=== PATIENT | male | born 1945 | race Caucasian/White ===

== ENCOUNTER 2019-12-15 19:11 | Emergency (ER) | payer MEDICARE, SELFPAY ==
[2019-12-15 19:13] VITALS: BP 197/82; PULSE 66; RESP 19; TEMP 36.7; O2SAT 98
--- NOTE | 2019-12-15 19:20 | ED.MALEGU ---
HPI - Male Genitourinary General Chief complaint: Urogenital-Male Stated complaint: abd pain Time Seen by Provider: 12/15/19 19:17 History of Present Illness HPI Narrative: Pain at the tip of his penis and lower abdomen since earlier this evening. He is currently being treated for a UTI. This was started during a recent admission to [facility]. He says that they also placed a catheter at that time, but that was removed prior to discharge. He was seen earlier today in urology clinic and told that everything was fine . Shortly after that is when the pain started. He is incontinent of urine since a prostatectomy years ago. I discussed the case with Dr. Fulton. He says that the UA obtained this morning did not indicate UTI. He did have 250 in his bladder at that time. It was determined that he did not need a catheter at that time. Related Data Home Medications Medication Instructions Recorded Confirmed allopurinol 300 mg PO DAILY 12/15/19 12/15/19 amlodipine 5 mg PO DAILY 12/15/19 12/15/19 aspirin [Aspir-81] 81 mg PO DAILY 12/15/19 12/15/19 atorvastatin 40 mg PO DAILY 12/15/19 12/15/19 bupropion HCl 150 mg PO QAM 12/15/19 12/15/19 ciprofloxacin HCl 500 mg PO BID 12/15/19 12/15/19 furosemide 20 mg PO BID 12/15/19 12/15/19 lorazepam 0.5 mg PO HS 12/15/19 12/15/19 losartan 50 mg PO DAILY 12/15/19 12/15/19 metoprolol tartrate 100 mg PO Q12H 12/15/19 12/15/19 [id number] acid-lutein [Centrum 1 tablet PO DAILY 12/15/19 12/15/19 Silver] pantoprazole 40 mg PO BID 12/15/19 12/15/19 sennosides 8.6 mg PO BID 12/15/19 12/15/19 sertraline 50 mg PO DAILY 12/15/19 12/15/19 Allergies Allergy/AdvReac Type Severity Reaction Status Date / Time Penicillins Allergy Unknown Swelling Verified 12/15/19 20:28 Review of Systems Review of Systems: All systems reviewed & are unremarkable except as noted in HPI and below Constitutional: Constitutional: Denies fever(s) Cardiovascular: Cardiovascular: Denies chest pain Respiratory: Respiratory: Denies dyspnea Gastrointestinal: Gastrointestinal: Reports abdominal pain, Denies nausea and Denies vomiting Genitourinary: Genitourinary: Denies hematuria, Denies genital lesions, Denies dysuria, Denies penile discharge and Denies testicular pain Musculoskeletal: Musculoskeletal: Denies back pain [facility] Past Medical History Medical History (Updated 12/16/19 @ 00:54 by Mike Lopez MD) Amputation toe Diabetes Gout HTN (hypertension) Prostate cancer Surgical History Surgical History (Updated 12/16/19 @ 00:54 by Mike Lopez MD) H/O prostatectomy Family History Family History Other Family history of allergic disorder Family history of dementia Family history of kidney disease Family history of liver disease Family history of malignant neoplasm Hypertension Social History Social History Smoking status: Former smoker Alcohol intake: current Exam Const: General: no acute distress, alert and ill appearing chronically HENMT: Head: normal to inspection Resp: Effort & Inspection: normal respiratory effort Auscultation: clear to auscultation bilaterally Cardio: Rate: regular rate Rhythm: regular rhythm GI: Inspection: non-distended GI Palp: No Guarding due to palpation present (GI) and No Rebound tenderness present : General: Yes Bladder palpation abnormal distended and tender Skin: General skin exam: normal color Neuro: General: patient oriented x3 and moves all extremities Speech: normal speech Extrem: General: edema bilateral Other: multiple toes amputated Course Vital Signs Vital signs: Vital Signs Temperature 36.7 C 12/15/19 19:13 Pulse Rate 66 12/15/19 19:13 Respiratory Rate 19 12/15/19 19:13 Blood Pressure 197/82 H 12/15/19 19:13 Pulse Oximetry 98 12/15/19 19:13 Temperature 36.7 C 12/15/19 1
[2019-12-15] MEDS: LIDOCAINE HCL 2% GEL UROJET 10 ML PKG (20:01)
[2019-12-15 21:33] VITALS: BP 170/78; PULSE 68; RESP 20; O2SAT 97
== END 2019-12-15 21:39 | disposition home or self-care (01) ==
PROVIDERS: Emergency Provider Emergency Medicine; PCP Internal Medicine
DX: R33.9 Retention of urine, unspecified (principal); E11.9 Type 2 diabetes mellitus without complications; I10 Essential (primary) hypertension; Z79.84 Long term (current) use of oral hypoglycemic drugs
CPT/HCPCS: 51702; 99283; A9270

== ENCOUNTER 2020-02-25 15:22 | Emergency (ER) | payer MEDICARE, SELFPAY ==
--- NOTE | ~2020-02-25 | XR_ITS ---
EXAMINATION: XR chest ET placement DATE: 02/25/2020 16:17 INDICATION: Intubation. TECHNIQUE: A single frontal view of the chest was obtained on 2 radiographs. COMPARISON: Chest 2 views 06/27/2014, CT abdomen and pelvis 08/09/14 FINDINGS: The patient is rotated to his right. There is a diffuse interstitial pattern in the lungs. There are perihilar airspace opacities bilaterally. A calcified right lung nodule and calcified right hilar lymph nodes are consistent with old granulomatous disease. No pleural effusion or pneumothorax . The heart size is normal. The endotracheal tube tip is 4.6 cm above the jolanta. The nasogastric tub e tip is in the stomach. IMPRESSION: 1. Diffuse lung disease, consistent with pneumonia versus mild pulmonary edema. Reviewed, dictated and finalized at location A.
--- NOTE | ~2020-02-25 | CT_ITS ---
EXAMINATION: CT brain wo con EXAM DATE: 02/25/2020 16:33 INDICATION: Seizure like activity. Unresponsive. Stroke protocol. TECHNIQUE: Spiral CT of the head was performed without contrast. Axial, coronal and sagittal images were reviewed. The dose-length product (DLP) for this examination was 681.00 mGy-cm. The exposure w as tailored according to patient size, and iterative reconstruction (ASIR) was used as additional dos e reduction technique. There is no prior study for comparison. FINDINGS: There is no acute intraparenchymal hemorrhage. No evidence of intraparenchymal brain mass lesion. No evidence of acute infarction. Please note that initial head CT has limited sensitivity f or small or acute infarctions. There is moderate periventricular and subcortical hypodensity, nonspec ific but probably related to small vessel ischemic disease. There is moderate prominence of the sul ci and ventricles related to cerebral atrophy. There is intracranial carotid arteriosclerosis. The re are no extra-axial collections. There is no mass effect or midline shift. The orbits are unremar kable. Soft tissue is unremarkable. Patient intubated and there is a nasogastric tube. IMPRESSION: 1. No acute intracranial findings. 2. Chronic age related findings. As per stroke protocol, I called these results to emergency room, discussed with Kori Veras at 02/25/2020 16:37 CDT . Reviewed, dictated and finalized at location A. IMPRESSION: 1. No acute intracranial findings. 2. Chronic age related findings. As per stroke protocol, I called these results to emergency room, discussed wit h Kd Mckenna MD at 02/25/2020 16:37 CDT .
[2020-02-25 15:22] VITALS: BP 221/106; PULSE 123; RESP 8
[2020-02-25 15:30] VITALS: BP 221/106
[2020-02-25 15:32] LABS: Basophils Absolute Auto 0.07 K/mm3 (0.00-0.10); Basophils Percent Auto 0.8 % (0.0-1.0); Eosinophils Absolute Auto 0.27 K/mm3 (0.02-0.50); Hematocrit 37.9 % (37.0-46.0); Hemoglobin 11.4 g/dL (12.4-15.3); Immature Granulocyte Absolute 0.03 K/mm3 (0.00-0.00); Immature Granulocyte Percent A 0.3 % (0.0-0.0); Lymphocytes Absolute Auto 1.89 K/mm3 (1.10-4.50); Lymphocytes Percent Auto 20.7 % (18.0-42.0); Mean Corpuscular HGB Conc 30.1 g/dL (32.0-36.0); Mean Corpuscular Hemoglobin 27.9 pg (27.0-31.0); Mean Corpuscular Volume 92.7 fL (78.0-102.0); Mean Platelet Volume 11.3 fl (8.7-11.0); Monocytes Absolute Auto 0.76 K/mm3 (0.10-0.90); Monocytes Percent Auto 8.3 % (2.0-11.0); Neutrophils Absolute Auto 6.1 K/mm3 (1.7-7.2); Neutrophils Percent Auto 66.9 % (50.0-70.0); Platelet Count Result 182 K/mm3 (150-420); Red Blood Count 4.09 M/mm3 (4.70-6.10); Red Cell Distribution Width 16.5 % (11.6-14.4); White Blood Count 9.1 K/mm3 (4.8-10.8)
[2020-02-25 15:46] LABS: INR 1.1; Partial Thromboplastin Time 29.4 SEC (22.3-31.6); Prothrombin Time 11.4 Seconds (9.64-11.0)
--- NOTE | 2020-02-25 15:50 | PC.NURSE ---
MULTIPLE ATTEMPTS AT INTUBATION - FINALLY SUCCESSFUL WITH 7.0 ETT EQUAL CHEST RISE AND FALL - RIGHT NASAL GASTRIC TUBE PLACED 18 FR - 16 FR GARNICA CATHETER PLACED
[2020-02-25 15:53] LABS: Add Urine Microscopic? YES; Appearance Urine Clear (Clear); Bilirubin Urine Negative (Negative); Blood Urine 2+ (Negative); Color Urine Yellow (Yellow); Glucose Urine UA Negative (Negative); Ketones Urine Negative (Negative); Leukocyte Esterase Ur 1+ LEU/UL (Negative); Nitrate Urine Negative (Negative); Protein Urine 2+ (Negative); Specific Grav Ur 1.025 (1.010-1.020); Urobilinogen Urine 0.2 mg/dL (0.2-1.0)
[2020-02-25 15:57] LABS: Alanine Aminotransferase 17 U/L (16-63); Albumin Level 3.6 g/dL (3.4-5.0); Alkaline Phosphatase 120 U/L (46-116); Anion Gap 13 mmol/L (8-16); Aspartate Amino Transferase 32 U/L (15-37); Bilirubin,Total 0.6 mg/dL (0.00-1.00); Blood Urea Nitrogen 12 mg/dL (7-18); Calcium 8.9 mg/dL (8.5-10.1); Carbon Dioxide 23 mmol/L (21-32); Chloride 104 mmol/L (98-108); Creatine Kinase 54 U/L (39-308); Estimated Glomerular Filt Rate 57; Glucose 167 mg/dL (70-99); Osmolality Calculated 293 mOsm/kg (285-295); Potassium 3.3 mmol/L (3.5-5.1); Sodium 140 mmol/L (136-145); Total Protein 7.3 g/dL (6.4-8.2)
[2020-02-25 15:59] LABS: Amphetamine Screen Urine Negative (Negative); Bacteria Urine 3+ /hpf; Barbiturate Screen Urine Negative (Negative); Benzodiazepines Screen Urine Negative (Negative); Cannabinoid Screen Urine Negative (Negative); Cocaine Screen Urine Negative (Negative); Methadone Screen Urine Negative (Negative); Opiate Screen Urine Negative (Negative); Phencyclidine Screen Urine Negative (Negative); Squamous Epithelial Cell Urine Few /hpf (Few); Transitional Epi Cells Urine Rare /hpf; WBC Urine 16-20 /hpf (0-3)
[2020-02-25 16:00] LABS: Troponin I < 0.02 ng/mL (0.00-0.056)
--- NOTE | 2020-02-25 16:34 | ECG_ITS ---
Measurements Intervals [place] Rate: 100 P: SC: 0 QRS: -51 QRSD: 157 T: 130 QT: 422 QTc: 547 Interpretive Statements ATRIAL FIBRILLATION WITH RAPID VENTRICULAR RESPONSE LEFT AXIS DEVIATION LEFT BUNDLE BRANCH BLOCK BASELINE ARTIFACT- I, II, AVR ABNORMAL ECG Electronically Signed On 02-25-2020 17:14:48 CDT by Eusebio Callejas D.O.
--- NOTE | 2020-02-25 16:37 | PC.NURSE ---
1525 - NARCAN 2MG IVP 1528 - NARCAN 2 MG IVP 1533 - ETOMIDATE 40 MG 1534 - SUCCINYLCHOLINE 100 MG 1535 - SUCCINYLCHOLINE 100 MG 1545 - VERSED 5 MG 1550 - ETOMIDATE 40 MG 1551 - SUCCINYLCHOLINE 100 MG 1637 - VERSED 0.5MG/ML INFUSION - 40 ML - 4ML/HR 1637 - 500 ML NS - TKO
[2020-02-25 16:39] VITALS: PULSE 63; O2SAT 98
--- NOTE | 2020-02-25 16:43 | ED.NEUROSD ---
HPI - Neuro Symptoms/Deficit General Chief Complaint: Suspected CVA Stated Complaint: 75YO male w/ known h.o HTN, HLD, Prostate CA, Depression brought in unresponsive by his who was driving him around. Approx 1 mile away (at gas station) she noticed she became unresponsive. She brought him directly to ER. Patient arrived in my ED with NIH stroke scale of 41, GCS of 3 . He was transferred onto a trauma bed and immediate evaluation was started. Related Data Home Medications Medication Instructions Recorded Confirmed allopurinol 300 mg PO DAILY 12/15/19 12/15/19 amlodipine 5 mg PO DAILY 12/15/19 12/15/19 aspirin [Aspir-81] 81 mg PO DAILY 12/15/19 12/15/19 atorvastatin 40 mg PO DAILY 12/15/19 12/15/19 bupropion HCl 150 mg PO QAM 12/15/19 12/15/19 ciprofloxacin HCl 500 mg PO BID 12/15/19 12/15/19 furosemide 20 mg PO BID 12/15/19 12/15/19 lorazepam 0.5 mg PO HS 12/15/19 12/15/19 losartan 50 mg PO DAILY 12/15/19 12/15/19 metoprolol tartrate 100 mg PO Q12H 12/15/19 12/15/19 [id number] acid-lutein [Centrum 1 tablet PO DAILY 12/15/19 12/15/19 Silver] pantoprazole 40 mg PO BID 12/15/19 12/15/19 sennosides 8.6 mg PO BID 12/15/19 12/15/19 sertraline 50 mg PO DAILY 12/15/19 12/15/19 Allergies Allergy/AdvReac Type Severity Reaction Status Date / Time Penicillins Allergy Unknown Swelling Verified 12/15/19 20:28 Review of Systems Review of Systems: ROS unobtainable: Yes unobtainable due to mental status PMFSH Past Medical History Medical History Amputation toe Depression Diabetes Gout HLD (hyperlipidemia) HTN (hypertension) Prostate cancer Surgical History Surgical History H/O prostatectomy Family History Family History Other Family history of allergic disorder Family history of dementia Family history of kidney disease Family history of liver disease Family history of malignant neoplasm Hypertension Social History Social History Smoking status: Former smoker Alcohol intake: current Exam Narrative: Exam Narrative: Patient w/ NIH Stroke Scale of 40, GCS of 3 is unresponsive Const: General: other (Unresponsive) Orientation/consciousness: No oriented to person, No oriented to place, No oriented to time, No patient oriented x3, No confusion and Other orientation findings (unresponsive) Limitations: altered mental status HENMT: Head: normal to inspection Eyes: Pupils: Pinpoint pupils and Other pupil findings (Left Eye points to right and up) Neck: Neck: normal visual inspection Thyroid: thyroid normal Lymphatic: no lymphadenopathy noted Chest: Chest palpation & inspection: normal inspection of the chest Resp: Effort & Inspection: normal respiratory effort, not able to speak in complete sentences, normal respiratory pattern, no audible wheezes, no cough, respiratory effort not decreased and grunting Auscultation: diminished lung sounds (diminished at bases) bilateral Cardio: Jugular venous distension: no JVD GI: Inspection: normal to inspection Percussion: Yes normal to percussion Auscultation: normal bowel sounds : Male General Exam: Yes normal external exam Skin: Trauma: no lacerations or abrasions Hair: normal Neuro: Gait exam (Neuro): Unable to assess gait Motor exam (neuro): Other motor observations present (no movement noted) Sensory Exam: Sensory deficit (Neuro) Course Course Emergency Course: Patient w/ NIH scale of 41 on presentation, GCS of 3 on arrival. Was intubated upon arrival w/ 7.5Fr ETT. Airway placement complicated by need for long ETT and difficulty intubating sec to anterior airway he required a boujie to locate airway, then ETT slid over Bougie. Vital Signs Vital signs: Vital Signs Pulse Rate 123 H 02/25/20 15:22 Respiratory Rat
--- NOTE | 2020-02-25 16:55 | PC.NURSE ---
1655 - FENTANYL 50 MCG GIVEN IVP
[2020-02-25 17:05] LABS: Ethanol < 3 mg/dL (0-6)
--- NOTE | 2020-02-25 17:11 | PC.NURSE ---
1706 - 1 MG ATIVAN 1707 - 100 MCG FENTANYL 1705 - ZOSYN 4.5 G INFUSION 1710 - POTASSIUM 20 MEQ INFUSION
[2020-02-25 17:12] VITALS: BP 187/65; PULSE 67; RESP 12; O2SAT 99
--- NOTE | 2020-02-25 17:14 | PC.NURSE ---
VENTILATOR SETTING - 550 TIDAL VOLUME - RATE OF 12 - PEEP 5 - PRESSURE SUPPORT 10
--- NOTE | 2020-02-25 17:29 | PC.NURSE ---
1726 - ADDITIONAL 1 MG ATIVAN GIVEN
--- NOTE | 2020-02-25 17:30 | PC.NURSE ---
POTASSIUM, NS, ATIVAN, AND ZOSYN INFUSING ON TRANSPORT
[2020-02-25 17:33] VITALS: BP 163/83; PULSE 63; O2SAT 98
== END 2020-02-25 17:50 | disposition short-term general hospital (02) ==
PROVIDERS: Emergency Provider Family Medicine; PCP Internal Medicine
DX: I63.9 Cerebral infarction, unspecified (principal); J80 Acute respiratory distress syndrome; E87.6 Hypokalemia; I10 Essential (primary) hypertension; E78.5 Hyperlipidemia, unspecified; Z85.46 Personal history of malignant neoplasm of prostate; Z79.899 Other long term (current) drug therapy; Z87.891 Personal history of nicotine dependence
CPT/HCPCS: 31500; 36415; 70450; 80053; 80307; 81001; 82550; 82553; 84484; 85025; 85610; 85730; 87086; 93005; 96365; 96375; 99285; 99291; J0171; J0330; J2060; J2250; J2310; J3010; J7030; J7040